=== PATIENT | female | born 1975 | race Caucasian/White ===

== ENCOUNTER 2016-09-03 15:39 | Emergency (ER) | payer OTHER ==
[~2016-09-03] VITALS: Ht 170.2 cm; Wt 109.0 kg
[2016-09-03] MEDS ORDERED: PHENTERMINE37.5 MG PO (15:53)
[2016-09-03] MEDS ORDERED: GABAPENTIN300 MG PO (15:54)
[2016-09-03] MEDS ORDERED: LOSARTAN POT50 MG PO (15:54)
[2016-09-03] MEDS ORDERED: DICYCLOMINE10 MG PO (15:54)
[2016-09-03] MEDS ORDERED: SPIRONOLACT25 MG PO (15:55)
[2016-09-03] MEDS ORDERED: LEVOTHYROXIN200 MC2 PO (15:55)
[2016-09-03] MEDS ORDERED: TOPIRAMATE100 MG PO (15:55)
[2016-09-03] MEDS ORDERED: CLONAZEPAM1 MG PO (15:56)
[2016-09-03] MEDS ORDERED: SOMA350 MG PO (15:56)
[2016-09-03] MEDS ORDERED: BIOTIN5000 MC1 PO (15:57)
[2016-09-03] MEDS ORDERED: VICODIN HP1 TA1 PO (15:57)
[2016-09-03] MEDS ORDERED: ZITHROMAX250 MG PO (16:22)
[2016-09-03] MEDS ORDERED: PREDNISONE10 MG PO (16:22)
[2016-09-03] MEDS ORDERED: VENTOLIN HF1 IN (16:22)
[2016-09-03] MEDS ORDERED: TESSALON PER100 MG PO (16:22)
[2016-09-03 17:11] LABS: INFLUENZA A NONE DETECTED (NONE DETECT); INFLUENZA B NONE DETECTED (NONE DETECT)
[2016-09-03 17:34] VITALS: BP 159/97
== END 2016-09-03 17:42 | disposition home or self-care (01) | DRG 203 ==
LOC: ED 15:39
PROVIDERS: Emergency Medicine
DX: J40 Bronchitis, not specified as acute or chronic (principal); R09.81 Nasal congestion; R05 Cough; R50.9 Fever, unspecified

== ENCOUNTER 2016-12-31 19:24 | Emergency (ER) | payer OTHER ==
[~2016-12-31] VITALS: Ht 170.2 cm; Wt 116.2 kg
[~2016-12-31 19:24] MED LIST: BIOTIN5000 MC1 PO; CLONAZEPAM1 MG PO; DICYCLOMINE10 MG PO; GABAPENTIN300 MG PO; LEVOTHYROXIN200 MC2 PO; LOSARTAN POT50 MG PO; PHENTERMINE37.5 MG PO; PREDNISONE10 MG PO; SOMA350 MG PO; SPIRONOLACT25 MG PO; TESSALON PER100 MG PO; TOPIRAMATE100 MG PO; VENTOLIN HF1 IN; VICODIN HP1 TA1 PO; ZITHROMAX250 MG PO
[2016-12-31] MEDS ORDERED: PHENTERMINE37.5 M1 PO (19:39)
[2016-12-31] MEDS ORDERED: LEVOTHYROXIN125 MCG PO (19:40)
[2016-12-31] MEDS ORDERED: ACYCLOVIR400 MG PO (19:41)
[2016-12-31] MEDS ORDERED: PERCOCET 10/31 COMBO PO (19:41)
[2016-12-31] MEDS ORDERED: ALPRAZOLAM2 M1 PO (19:46)
[2016-12-31] MEDS ORDERED: FENTANYL25 MCG/HR TD (19:49)
[2016-12-31] MEDS ORDERED: XANAX1 MG PO (19:50)
[2016-12-31] MEDS ORDERED: ORPHENADRINE100 MG PO (20:45)
[2016-12-31] MEDS ORDERED: ZIPSOR25 MG PO (20:45)
[2016-12-31 21:15] VITALS: BP 139/78
== END 2016-12-31 21:15 | disposition home or self-care (01) | DRG 93 ==
LOC: ED 19:24
DX: G89.29 Other chronic pain (principal); M51.37 Other intervertebral disc degeneration, lumbosacral region; M54.5 Low back pain

== ENCOUNTER 2017-04-06 23:30 | Emergency (ER) | payer OTHER ==
[~2017-04-06] VITALS: Ht 170.2 cm; Wt 115.0 kg
[~2017-04-06 23:30] MED LIST changes: +ACYCLOVIR400 MG PO; +ALPRAZOLAM2 M1 PO; +FENTANYL25 MCG/HR TD; +LEVOTHYROXIN125 MCG PO; +ORPHENADRINE100 MG PO; +PERCOCET 10/31 COMBO PO; +PHENTERMINE37.5 M1 PO; +XANAX1 MG PO; +ZIPSOR25 MG PO
[2017-04-07 01:58] VITALS: BP 140/85
[2017-04-07] MEDS ORDERED: ULTRAM50 M1 PO (01:59)
== END 2017-04-07 01:55 | disposition home or self-care (01) | DRG 563 ==
LOC: ED 23:30
DX: S96.912A Strain of unspecified muscle and tendon at ankle and foot level, left foot, initial encounter (principal); W22.8XXA Striking against or struck by other objects, initial encounter; Y93.9 Activity, unspecified; Y92.009 Unspecified place in unspecified non-institutional (private) residence as the place of occurrence of the external cause

== ENCOUNTER 2018-05-10 11:42 | Emergency (ER) | payer OTHER, BC ==
[~2018-05-10] VITALS: Ht 170.2 cm; Wt 118.0 kg
[~2018-05-10 11:42] MED LIST changes: +ULTRAM50 M1 PO
[2018-05-10] MEDS ORDERED: SOMA350 MG PO (13:41)
[2018-05-10] MEDS ORDERED: OXYCODONE30 MG PO (13:41)
[2018-05-10] MEDS ORDERED: ALPRAZOLAM2 MG PO (13:42)
[2018-05-10] MEDS ORDERED: TORADOL PO (15:02)
[2018-05-10 15:15] VITALS: BP 129/74
== END 2018-05-10 15:15 | disposition home or self-care (01) | DRG 563 ==
LOC: ED 11:42
DX: S39.012A Strain of muscle, fascia and tendon of lower back, initial encounter (principal); S16.1XXA Strain of muscle, fascia and tendon at neck level, initial encounter; R51 Headache; V59.59XA Passenger in pick-up truck or van injured in collision with other motor vehicles in traffic accident, initial encounter; Y92.411 Interstate highway as the place of occurrence of the external cause; Y93.I9 Activity, other involving external motion

== ENCOUNTER 2020-02-12 13:03 | Emergency (ER) | payer MEDICAID ==
[~2020-02-12] VITALS: Ht 170.2 cm; Wt 146.4 kg
[~2020-02-12 13:03] MED LIST changes: +ALPRAZOLAM2 MG PO; +B-12 10001000 MCG; +BIOTIN MAXI10000 MC1; +CAROSPIR25 MG/5 ML; +MULTI VIT PO; +OXYCODONE30 MG PO; +OXYCONTIN10 MG PO; +TOPAMAX100 M1; +TORADOL PO; +VITAMIN C500 M5 PO; +[UNRECOGNIZED DRUG - OTHER]
[2020-02-12] MEDS ORDERED: IBUPROFEN600 MG PO (15:44)
[2020-02-12 16:16] VITALS: BP 145/83
== END 2020-02-12 16:19 | disposition home or self-care (01) ==
LOC: ED 13:03
DX: S70.11XA Contusion of right thigh, initial encounter (principal); S93.402A Sprain of unspecified ligament of left ankle, initial encounter; S93.401A Sprain of unspecified ligament of right ankle, initial encounter; I10 Essential (primary) hypertension; E66.9 Obesity, unspecified; W13.3XXA Fall through floor, initial encounter; Y92.029 Unspecified place in mobile home as the place of occurrence of the external cause

== ENCOUNTER 2020-05-13 08:42 | Emergency (ER) | payer MEDICAID ==
[~2020-05-13] VITALS: Ht 170.2 cm; Wt 142.3 kg
[~2020-05-13 08:42] MED LIST changes: -CAROSPIR25 MG/5 ML; +IBUPROFEN600 MG PO; +LEVOTHYROXIN150 MCG PO; -TOPAMAX100 M1; +TOPAMAX100 M1 PO
[2020-05-13] MEDS ORDERED: GABAPENTIN600 MG PO (09:43)
[2020-05-13] MEDS ORDERED: ROXICODONE15 M1 PO (09:44)
[2020-05-13 09:46] LABS: HEMATOCRIT 40.9 % (37.0-47.0); HEMOGLOBIN 13.1 g/dl (12.0-16.0); IMMATURE GRANULOCYTES 0.7 % (0.0-5.0); MEAN CORPUSCULAR HGB 28.2 pG CALC (26.0-32.0); NEUT# 7.4 thou/uL (2.00-7.15); RED BLOOD COUNT 4.65 mill/uL (4.20-5.60); RED CELL DISTRI WIDTH 14.9 % (11.5-15.5)
[2020-05-13 10:11] LABS: ACT PARTIAL THROMBO TIME 24.3 SECONDS (20.0-32.5); ALBUMIN 4.1 g/dL (3.2-5.0); ALKALINE PHOSPHATASE 81 u/l (38-126); ANION GAP 8 (6-22 (CALC)); BILIRUBIN, TOTAL 0.4 mg/dL (0.0-1.4); BUN 5 mg/dL (7-17); BUN/CREATININE RATIO 8 (12-20 (CALC)); CARBON DIOXIDE 27 mmol/l (22-30); CHLORIDE 104 mmol/l (95-108); CREATININE 0.7 mg/dL (0.5-1.0); GFR > 60 ML/MIN (>=60 (CALC)); GFR FOR AFR.AMER. > 60 ML/MIN (>=60 (CALC)); POTASSIUM 3.9 mmol/l (3.5-5.1); SGOT/AST 37 u/l (14-36); SODIUM 135 mmol/l (137-146)
[2020-05-13] MEDS ORDERED: PEPCID40 MG PO (12:43)
[2020-05-13] MEDS ORDERED: MAALOX ADV1 CHW PO (12:43)
[2020-05-13 13:11] VITALS: BP 183/111
== END 2020-05-13 13:12 | disposition home or self-care (01) ==
LOC: ED 08:42
PROVIDERS: Student in an Organized Health Care Education/Training Program
DX: K21.9 Gastro-esophageal reflux disease without esophagitis (principal); I10 Essential (primary) hypertension; E66.9 Obesity, unspecified

== ENCOUNTER 2020-09-19 16:34 | Inpatient (IN) | payer MEDICAID ==
[~2020-09-19] VITALS: Ht 170.2 cm; Wt 156.0 kg
[~2020-09-19 16:34] MED LIST changes: +GABAPENTIN600 MG PO; +MAALOX ADV1 CHW PO; +PEPCID40 MG PO; +ROXICODONE15 M1 PO
--- NOTE | 2020-09-19 16:34 | NUR ---
PT BROUGHT IMMEDIATLY TO TREATMENT. PT AROUSABLE TO PAINFUL STIMULUS.
[2020-09-19 18:02] LABS: HEMATOCRIT 39.5 % (37.0-47.0); HEMOGLOBIN 12.1 g/dl (12.0-16.0); IMMATURE GRANULOCYTES 0.3 % (0.0-5.0); MEAN CELL VOLUME 88.6 fL CALC (80.0-100.0); MEAN CORPUSCULAR HGB 27.1 pG CALC (26.0-32.0); MEAN CORPUSCULAR HGB CONC 30.6 g/dL CAL (32.0-36.0); NEUT# 5.5 thou/uL (2.00-7.15); RED BLOOD COUNT 4.46 mill/uL (4.20-5.60); RED CELL DISTRI WIDTH 14.4 % (11.5-15.5)
[2020-09-19 18:19] LABS: ALBUMIN 3.8 g/dL (3.2-5.0); ALKALINE PHOSPHATASE 101 u/l (38-126); BUN 13 mg/dL (7-17); BUN/CREATININE RATIO 19 (12-20 (CALC)); CHLORIDE 92 mmol/l (95-108); CREATININE 0.7 mg/dL (0.5-1.0); GFR > 60 ML/MIN (>=60 (CALC)); GFR FOR AFR.AMER. > 60 ML/MIN (>=60 (CALC)); LIPASE 88 u/l (23-300); POTASSIUM 3.5 mmol/l (3.5-5.1); SGOT/AST 64 u/l (14-36); SODIUM 132 mmol/l (137-146); TOTAL PROTEIN 6.6 g/dL (6.3-8.2)
[2020-09-19 18:20] LABS: ANION GAP 9 (6-22 (CALC)); BILIRUBIN, TOTAL 0.6 mg/dL (0.0-1.4); CARBON DIOXIDE 35 mmol/l (22-30)
[2020-09-19 18:47] LABS: TSH, 3RD GENERATION < 0.02 uIU/mL (0.47 - 4.68)
--- NOTE | 2020-09-19 18:55 | NUR ---
CARE ASSUMED; PT DROWSY BUT ANXIOUS THRASHING AROUND IN BED SPOUSE AT BEDSIDE ANXIOUS WELL ATTEMPTING TO CALM PT. NARCAN ADMINISTERED BY PREVIOUS NURSE DURING BEDSIDE REPORT. COMFORT MEASURES PROVIDED, PT SATS CURRENTLY 97% ON ROOM AIR BODY HABITUS INHIBITS OPTIMAL BREATHING.
--- NOTE | 2020-09-19 19:03 | NUR ---
EKG COMPLETED PT RESTING IN BED, DOZING INTERMITTENLY AROUSES TO TACTILE STIMULI BUT DOZES RIOGHT BACK OFF.
--- NOTE | 2020-09-19 19:20 | NUR ---
PT AGITATED AND INTERMITTENLY THRASHING AROUND IN BED SPOUSE AT BEDSIDE ANXIOUS WELL; ATTEMPTING TO CALM PT. NARCAN ADMINISTERED BY DAY SHIFT NURSE DURING BEDSIDE REPORT. 16F SINCLAIR INSERTED USING STERILE TECHNIQUE WITH IMMEDIATE RETURN OF CLEAR YELLOW URINE WITH SOME SEDIMENT NOTED. COMFORT MEASURES PROVIDED, PT SATS CURRENTLY 93% ON ROOM AIR BODY HABITUS INHIBITS OPTIMAL BREATHING. INSTRUCTS THIS NURSE TO PREPARE FOR INTUBATION
[2020-09-19 19:41] LABS: URINE BILIRUBIN - DIPSTICK NEGATIVE (NEGATIVE); URINE BLOOD DIPSTICK MODERATE (NEGATIVE); URINE COLOR YELLOW; URINE GLUCOSE - DIPSTICK >=1000 mg/dL (NEGATIVE); URINE KETONE NEGATIVE (NEGATIVE); URINE PROTEIN - DIPSTICK NEGATIVE (NEG-TRACE); URINE SPECIFIC GRAVITY 1.015; URINE UROBILINOGEN - DIPSTICK 0.2 E.U./dL (0.2)
[2020-09-19 19:42] LABS: URINE LEUK ESTERASE SMALL (NEGATIVE); URINE NITRITE - DIPSTICK NEGATIVE (Negative)
[2020-09-19 19:49] LABS: URINE SQUAMOUS EPITHELIAL CELL MANY EPI/hpf (0-FEW); URINE WBC 0-2 WBC/hpf (0-5)
--- NOTE | 2020-09-19 20:39 | NUR ---
1949 - T BEDSIDE FOR INTUBATION 1953 - ROCURONIUM GIVEN IVP BY 1953 - ATOMIDATE GIVEN IVP BY 1954 - 8.0 ETT INSERTED BY 23CM AT LIP LINE 1955 - PROPOFOL GTT STRATED PER PROTOCOL AT RATE OF 40 MCG/KG 1956 - 16F OG INSERTED BY 1999 - PLACED ON VENT SEE FLOWSHEET FOR SETTINGS 2014 - UNABLE TO PLACE IJ TLC RELATED TO BODY HABITUS 2015 - PROPOFOL BOLUS GIVEN PER VO 2036 - ANOTHER PROPOFOL BOLUS GIVEN PER VO 2038 - R FEMORAL TLC INSERTED BY
--- NOTE | 2020-09-19 22:00 | NUR ---
VS STABLE PT REMAINA AFEBRILE ,IVF AND MEDICATIONS INFUSING THRU TLC IN R FEMORAL W/O INCIDENT, TOLERATING VENTILATOR W/O INCIDENT SINCLAIR INTACT DRAINING CLEAR YELLOW URINE, ORAL CARE PROVIDED AND OG DRAINING SMALL AMOUNT ORANGE COLORED FLUID. ORAL SECRETIONS DECREASED WITH COMFORTABLE SEDATION. CATH SECURITY DEVICE INTACT ON R UPPER THIGH.
--- NOTE | 2020-09-19 23:15 | NUR ---
PT REMAINS SEDATED AND INTUBATED, ORAL CARE PERFOMRED PRN, VS REMAINS STABLE SEDATION DECREASED TOLERATED FOR PT COMFORT.
[2020-09-20] VITALS (43 sets, daily range): BP systolic 118–183; BP diastolic 59–86
--- NOTE | 2020-09-20 00:30 | NUR ---
PT REMAINS SEDATED AND INTUBATED, ORAL CARE PERFOMRED, AND NG INTACT TO LIS WITH SM AMOUNT ORANGISH LIQUID DRAINAGE WITH FEW PARTICLES NOTED, FOELY DRAINING ADEQUATE CLEAR YELLOW URINE W/ MILD SEDIMENT NOTED, VS REMAINS STABLE
--- NOTE | 2020-09-20 02:06 | NUR ---
PT REMAINS SEDATED AND INTUBATED, VS REMAINS STABLE, PT REMAINS COMFORTBALE AT CURRENT SEDATION SETTINGS, SINCLAIR INTACT AND NG DRNG UNCHANGED.
--- NOTE | 2020-09-20 02:07 | NUR ---
URINE OUTOPUT TO THIS POINT 1600 ML
--- NOTE | 2020-09-20 03:55 | NUR ---
PT ICU ADMIT BEING HELD IN ER, SEE ER DOCUMENTATION FOR PREVIOUS.
--- NOTE | 2020-09-20 04:17 | NUR ---
PT REMAINS INTUBATED AND SEDATED, VS STABLE PT REMAINA AFEBRILE ,IVF AND MEDICATIONS INFUSING THRU TLC IN R FEMORAL W/O INCIDENT, TOLERATING VENTILATOR W/O INCIDENT; SINCLAIR INTACT DRAINING CLEAR YELLOW URINE, CATH SECURITY DEVICE INTACT TO R UPPER THIGH; ORAL CARE PROVIDED AND OG DRAINING SMALL AMOUNT ORANGE COLORED FLUID. RESTRAINTS INTACT TO BILAT WRISTS TO PREVENT SELF EXTUBATION; WITH GOOD CIRCULTAION NOTED TO BUE. COMFORT MEASURES PROVIDED
--- NOTE | 2020-09-20 04:43 | NUR ---
AM LABWORK OBTAINED VIA TLC W/O INCIDENT.
[2020-09-20 05:05] LABS: HEMOGLOBIN 11.5 g/dl (12.0-16.0); IMMATURE GRANULOCYTES 0.4 % (0.0-5.0); MEAN CELL VOLUME 88.3 fL CALC (80.0-100.0); MEAN CORPUSCULAR HGB 27.4 pG CALC (26.0-32.0); MEAN CORPUSCULAR HGB CONC 31.1 g/dL CAL (32.0-36.0); NEUT# 6.08 thou/uL (2.00-7.15); RED BLOOD COUNT 4.19 mill/uL (4.20-5.60); RED CELL DISTRI WIDTH 14.3 % (11.5-15.5)
[2020-09-20 05:20] LABS: ALBUMIN 3.4 g/dL (3.2-5.0); ALKALINE PHOSPHATASE 98 u/l (38-126); ANION GAP 7 (6-22 (CALC)); BILIRUBIN, TOTAL 0.6 mg/dL (0.0-1.4); BUN 12 mg/dL (7-17); BUN/CREATININE RATIO 21 (12-20 (CALC)); CARBON DIOXIDE 33 mmol/l (22-30); CHLORIDE 97 mmol/l (95-108); CREATININE 0.6 mg/dL (0.5-1.0); GFR > 60 ML/MIN (>=60 (CALC)); GFR FOR AFR.AMER. > 60 ML/MIN (>=60 (CALC)); POTASSIUM 3.8 mmol/l (3.5-5.1); SGOT/AST 75 u/l (14-36); SODIUM 133 mmol/l (137-146); TOTAL PROTEIN 6.1 g/dL (6.3-8.2)
--- NOTE | 2020-09-20 05:29 | NUR ---
RADIOLOGY AND RT AT [facility] FOR AM XRAY AND ABG.
--- NOTE | 2020-09-20 07:08 | NUR ---
Patient is screened for PT intervention and no needs are identified at this time
--- NOTE | 2020-09-20 07:47 | NUR ---
PT ARRIVED TO ICU ROOM 6 VIA BED WITH LINE MECHANIC, RT, AND ELECTRIC RANGE ASSEMBLER. ARRIVED ON VENTILATOR AND SEDATED. CONNECTED TO ALL ATTACHMENTS AND SETTLED INTO ROOM. RASS SCORE OF -5; DIPRIVAN INFUSING AT 50 MCG/KG/MIN; VERSED DISCONTINUED IN ED; NORMAL SALINE AT 100ML/HR. ET TUBE SIZE 8.0 AND 24 AT LIP LINE; SETTINGS AT RATE OF 24, TV 480, PEEP 8.0, FIO2 100%. OG TUBE SECURED TO ET TUBE; CONNECTED TO LIS, YELLOW GASTRIC CONTENT. SINUS RYTHM WHEN CONNECTED TO ALTERNATIVE EDUCATION TEACHER. BILATERAL SOFT WRIST RESTRAINTS INTACT; GOOD CSM TO HANDS; RESTRAINTS REMOVED FOR RESPOTIIONING. 16F SINCLAIR CATHETER DRAINING CLEAR, YELLOW URINE. TRIPLE LUMEN CENTRAL CATHETER TO RIGHT FEMORAL; DRESSING CDI; ALL LUMENS FLUSH WELL WITH GOOD BLOOD RETURN. #20 LAC EMS SITE SL; FLUSHES WELL AND APPEARS HEALTHY. PERRLA; LUNG SOUNDS ARE COARSE ANTERIORLY; HR REGULAR; GOOD PERIPHERAL PULSES; HYPOACTIVE BOWEL SOUNDS X 4; BRUISING TO UPPER ABDOMEN THAT APPEARS TO BE FROM INJECTIONS; BLE SWELLING; LEFT LEG LARGER WITH MILD REDNESS AND WARMTH. SAFETY MEASURES IN PLACE. NEEDS ARE ANTICIPATED BY STAFF.
--- NOTE | 2020-09-20 07:57 | NUR ---
PT TRANSPORTED TO ICU STABLE AND IN NO DISTRESS. CARE ASSUMED TO ROSALINDA
--- NOTE | 2020-09-20 07:58 | NUR ---
PT TRANSPORTED TO [facility] SURG STABLE AND IN NO DISTRESS. CARE ASSUMED TO ROSALINDA
--- NOTE | 2020-09-20 08:17 | NUR ---
FIO2 DECREASED TO 90%.
--- NOTE | 2020-09-20 08:50 | NUR ---
DR. BEAUCHAMP AT BEDSIDE. DIPRIVAN TITRATED DOWN TO 40 MCG/KG/MIN.
--- NOTE | 2020-09-20 08:53 | NUR ---
FIO2 DECREASED TO 80%. RR DECREASED TO 20.
--- NOTE | 2020-09-20 09:34 | NUR ---
DIPRIVAN TITRATED DOWN TO 30 MCG/KG/MIN TO PREPARE FOR AWAKENING TRIAL; RASS SCORE CURRENTLY -4.
--- NOTE | 2020-09-20 09:37 | NUR ---
FIO2 DECREASED TO 70%.
--- NOTE | 2020-09-20 09:53 | NUR ---
SCDS APPLIED TO BLE; RT AT BEDSIDE ADJUSTING VENT SETTINGS.
--- NOTE | 2020-09-20 10:10 | NUR ---
FIO2 DECREASED TO 60%.
--- NOTE | 2020-09-20 10:20 | NUR ---
RT AT BEDSIDE FOR AWAKENING TRIAL. DIPRIVAN INFUSING AT 10 MCG/KG/MIN. PT IS AWAKE AND MAKES EYE CONTACT AND FOLLOWS COMMANDS TO SQUEEZE HANDS, MOVE HEAD, ETC. SHAKES HEAD "YES" WHEN ASKED IF SHE IS HAVING PAIN. PT IS TEARFUL AND ANXIOUS; FACE BECOMING FLUSHED AND BLOOD PRESSURE ELEVATED. INDICATED THAT SHE WANTS TO ET TUBE REMOVED; ENCOURAGED TO RELAX AND VERBAL CUES PROVIDED. DR. BEAUCHAMP NOTIFIED OF PATIENT CONDITION.
--- NOTE | 2020-09-20 10:45 | NUR ---
AWAKENING TRIAL COMPLETED AND DR. BEAUCHAMP AGAIN AT BEDSIDE. DIPRIVAN INCREASED TO 40 MCG/KG/MIN TITRATED PER PROTOCOL. VENT SETTINGS NOW AT RATE OF 20, TV 480, PEEP 5.0, FIO2 50%. NEW ORDERS RECEIVED INCLUDING TO CONTINUE ON VENTILATOR FOR TODAY.
--- NOTE | 2020-09-20 11:40 | NUR ---
CALLED WITH UPDATE ON PATIENT CONDITION; PROVIDES HISTORY FOR ADMISSION. ALL QUESTIONS ANSWERED TO SATISFACTION. ACCU CHECK [id number]; COVERED WITH SLIDING SCALE INSULIN.
--- NOTE | 2020-09-20 12:35 | NUR ---
MILK OF MAGNESIA AND ROXICODONE GIVEN AT THIS TIME THROUGH OG TUBE; PT POSITIONED INTO HIGH FOWLERS AND AND OG TUBE CLAMPED.
--- NOTE | 2020-09-20 13:10 | NUR ---
PT OPENS EYES AND MAKES EYE CONTACT TO TACTILE STIMULI; DIPRIVAN INCREASED TO 60 MCG/KG/MIN. AT BEDSIDE.
--- NOTE | 2020-09-20 16:00 | NUR ---
RESTING WITH RASS SCORE OF -3; DIPRIVAN CONTINUES TO INFUSE AT 60 MCG/KG/MIN; PT MORE RELAXED WITH MINIMAL STIMULI. VENT SETTINGS UNCHANGED. REPOSITIONED WITH PILLOWS. MOTHER CALLED FOR UPDATE.
--- NOTE | 2020-09-20 17:45 | NUR ---
PT INCREASINGLY ANXIOUS AND OPENING EYES LOOKING AROUND; FACIAL GRIMACING AT TIMES; HEART RATE INCREASED INTO 110'S AND PT BREATHING AT 34 PER MINUTE (14 RESPIRATIONS OVER VENT.) FACE IS FLUSHED AND MOIST. DIPRIVAN TITRATED TO 75 MCG/KG/MIN WITH MINIMAL EFFECT. VERSED DRIP INITATED AT 1730 WITH 1MG LOADING DOSE; INFUSING AT 1 MG/HR PER PROTOCOL.
--- NOTE | 2020-09-20 18:25 | NUR ---
SMALL SOFT BOWEL MOVEMENT BY PATIENT; CELINA CARE AND SINCLAIR CARE PROVIDED; PT FOUND TO HAVE THICK CREAMY WHITE DISCHARGE FROM VAGINA WITH ODOR; GERARD WINSLOW NOTIFIED. ALSO SMALL AMOUNT OF BLOOD AT SINCLAIR INSERTION SITE; CLEANSED. PT BETTER SEDATED AT THIS TIME AND TOLERATED WELL. RESPIRATIONS NOW AT 24 PER MINUTE, HEART RATE AT 102. WILL CONTINUE TO MONITOR.
--- NOTE | 2020-09-20 20:00 | NUR ---
PATIENT RESTING IN BED WITH EYES CLOSED. SEDATED AND ON VENTILATOR. ORALLY INTUBATED WITH #8 ETT, 24 CM AT LIP LINE. VENT SETTINGS TV 480, FIO2 50%, A/C RATE 20, PEEP 5. OG TUBE IN PLACE TO LIS DRAINING LT GREENISH-GOLD GASTRIC MATERIAL. SINCLAIR DRAINS CLEAAR YELLOW URINE. SCD'S ON BILATERALLY. 2+ PITTING EDEMA OF BLE, NON-PITTING PEDAL EDEMA PRESENT. RIGHT FEMORAL TLC IN PLACE WITH NS INFUSING AT 100 ML/HR, PROPOFOL AT 75 MCG/KG/MIN AND VERSED AT 4 MG/HR. RASS -3. RESEARCH SUPPORT SPECIALIST SHOWS SR-ST.
--- NOTE | 2020-09-20 22:00 | NUR ---
VSS. O2 SAT 95-97% SAME VENT SETTINGS. RASS-3. ST ON MONITOR.
[2020-09-21] VITALS (46 sets, daily range): BP systolic 140–226; BP diastolic 67–113
--- NOTE | 2020-09-21 | NUR ---
REMAINS ON VENT SAME SETTINGS PREVIOUSLY REPORTED. PROPOFOL CONTINUES AT 75 MGC/KG/MIN AND VERSED AT 4 MG/HR. PATINET ADEQUATELY SEDATED, RASS -3. ST ON MONITOR. VSS. SUX ORALLY FOR THICK CLEAR SECRETIONS AND PER ETT FOR SCANT WHITE.
--- NOTE | 2020-09-21 00:52 | NUR ---
ROSY'S DRAW PER JOVANNY RAMOS.
--- NOTE | 2020-09-21 02:00 | NUR ---
REPOSTIONED. ORAL AND ETT SUCTIONED AND ORAL CARE PROVIDED. ADEQUATELY SEDATED. SR-ST ON MONITOR.
--- NOTE | 2020-09-21 04:00 | NUR ---
COMPLETE BED BATH GIVEN AND LINENS CHANGED. TURNED AND REPOSITIONED. SUX ORALLY AND ETT. SAME VENT SETTINGS EARLIER. PROPOFOL CONTINUES AT 75 MCG/KG/MIN AND VERSED AT 4 MG/HR.
--- NOTE | 2020-09-21 05:35 | NUR ---
PORTABLE CHEST XRAY DONE.
[2020-09-21 05:39] LABS: HEMATOCRIT 34.3 % (37.0-47.0); HEMOGLOBIN 10.7 g/dl (12.0-16.0); IMMATURE GRANULOCYTES 0.4 % (0.0-5.0); MEAN CELL VOLUME 88.4 fL CALC (80.0-100.0); MEAN CORPUSCULAR HGB 27.6 pG CALC (26.0-32.0); MEAN CORPUSCULAR HGB CONC 31.2 g/dL CAL (32.0-36.0); NEUT# 9.74 thou/uL (2.00-7.15); RED BLOOD COUNT 3.88 mill/uL (4.20-5.60); RED CELL DISTRI WIDTH 14.7 % (11.5-15.5)
--- NOTE | 2020-09-21 05:55 | NUR ---
BASED ON AM ABG RESULTS, FIO2 DECREASED TO 40% BY RACHEL GRAIN DISTRIBUTOR.
[2020-09-21 05:56] LABS: ALBUMIN 2.9 g/dL (3.2-5.0); ALKALINE PHOSPHATASE 79 u/l (38-126); ANION GAP 9 (6-22 (CALC)); BILIRUBIN, TOTAL 0.5 mg/dL (0.0-1.4); BUN 17 mg/dL (7-17); BUN/CREATININE RATIO 28 (12-20 (CALC)); CARBON DIOXIDE 31 mmol/l (22-30); CHLORIDE 101 mmol/l (95-108); CREATININE 0.6 mg/dL (0.5-1.0); GFR > 60 ML/MIN (>=60 (CALC)); GFR FOR AFR.AMER. > 60 ML/MIN (>=60 (CALC)); MAGNESIUM 2.2 mg/dL (1.6-2.3); POTASSIUM 3.9 mmol/l (3.5-5.1); SGOT/AST 61 u/l (14-36); SODIUM 137 mmol/l (137-146); TOTAL PROTEIN 5.3 g/dL (6.3-8.2)
--- NOTE | 2020-09-21 06:00 | NUR ---
PATIENT REMAINS ORALLY INTUBATED. REMAINS SEDATED ON PROPOFOL AND VERSED. RASS -2 TO -4. SOFT WRIST RESTRAINTS REMAIN IN PLACE. SCD'S ON. RIGHT FEMORAL TLC IN PLACE ALL PORTS HAVE A GOOD BLOOD RETURN, FLUSHED AND PATENT. VSS.
[2020-09-21] MEDS ORDERED: LASIX 20 MG TAB20 MG PO (06:36)
[2020-09-21] MEDS ORDERED: CARDIZEM CD240 MG PO (06:37)
[2020-09-21] MEDS ORDERED: ASPIRIN 81 LOW81 MG (06:38)
--- NOTE | 2020-09-21 07:30 | NUR ---
REPORT RECEIVED FROM JAMES BAUER. PT RESTING IN BED SEMI CANO AND POSITIONED WITH PILLOWS TO OFFLOAD BACK AND HEELS; SEDATED WITH RASS SCORE OF -4; NO SIGNS OF PAIN OR DISTRESS. RESPIRATIONS EVEN AND ASSISTED ON VENT WITH SETTINGS AT RATE OF 20, TV 480, PEEP 5.0, FIO2 40%. DIPRIVAN INFUSING AT 75 MCG/KG/MIN; VERSED 4 MG/HR; NORMAL SALINE 100 ML/HR. TL CENTRAL CATHETER TO R FEM CDI; ALL LUMENS ARE PATENT WITH GOOD BLOOD RETURN. OG TUBE CONNECTED TO LIS WITH YELLOW GASTRIC CONTENT. BILATERAL SOFT WRIST RESTRAINTS INTACT; GOOD CIRCULATION TO HANDS. SINCLAIR CATHETER DRAINING CLEAR YELLOW URINE. SCDS INTACT TO BLE. LUNGS ARE COARSE WITH EXPIRATORY WHEEZING TO LEFT UPPER LOBE ANTERIORLY; 1+ PEDAL EDEMA. ACCU CHECK 248; VSS. SAFETY MEASURES IN PLACE. NEEDS ARE ANTICIPATED BY STAFF.
--- NOTE | 2020-09-21 09:30 | NUR ---
0745-TITRATION OF SEDATIVES BEGAN TO PREPARE FOR EXTUBATION. DIPRIVAN DOWN TO 50 MCG/KG/MIN AND VERSED DOWN TO 3 MG/HR. 08-DIPRIVAN AT 40 MCG/KG/MIN AND VERSED AT 2 MG/HR. 0835-DIPRIVAN AT 20 MCG/KG/MIN AND VERSED AT 1 MG/HR. DR. BEAUCHAMP AND RT AT BEDSIDE FOR AWAKENING TRIAL. 904-DIPRIVAN AT 10 MCG/KG/MIN AND VERSED DISCONTINUED. 929-DIPRIVAN DRIP DISCONTINUED. RT AT BEDSIDE FOR EVAL; VENT SETTINGS NOW ON SPONTANEOUS-PRESSURE SUPPORT OF 22. WILL CONTINUE TO MONITOR.
--- NOTE | 2020-09-21 10:43 | NUR ---
1010-EXTUBATION COMPLETED AND 5L OXYGEN VIA NC APPLIED. OG TUBE D/C'D RESTRAINTS D/C'D. PT VERY DROWSY; ABLE TO STATES HER NAME WITH LOW GARBLED SPEECH. VERBAL CUES AND ENCOURAGEMENT PROVIDED. 1023- AT BEDSIDE FOR REEVALUATION. RT ALSO AT BEDSIDE; PT PLACED ON BIPAP 30% RATE OF 16; SPO2 99%. NEW ORDERS RECEIVED. 1030-BREATHING TREATMENT PROVIDED BY RT.
--- NOTE | 2020-09-21 11:27 | NUR ---
LASIX GIVEN IV. PT CONTINUES TO REST ON BIPAP WITH EYES CLOSED AND FAN ON; VERY DROWSY. LUNGS ARE MORE CLEAR THAN THIS MORNING; PT APPEARS MORE COMFORTABLE AND LESS ANXIOUS.
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
--- NOTE | 2020-09-21 13:23 | NUR ---
XANAX GIVEN TO HELP WITH ANXIETY; PT EXPERIENCING PARANOIA; SUSPICIOUS OF SMALL BOTTLE OF WATER. STATES, "ARE YOU JOKING? WHAT DID YOU DO TO IT. SURE ITS JUST WATER." PT REASSURED THAT NOTHING IS GIVEN TO HER WITHOUT HER PERMISSION; TOOK MEDICATION WITH ENCOURAGEMENT. SON NOW AT BEDSIDE.
--- NOTE | 2020-09-21 13:40 | NUR ---
PT FOUND OFF BIPAP ON 3L NC. SPO2 IS 98%.
--- NOTE | 2020-09-21 14:26 | NUR ---
APRESOLINE GIVEN FOR ELEVATED BLOOD PRESSURE; CURRENTLY / HR 95. SPO2 97% NOW ON 3L VIA NC.
--- NOTE | 2020-09-21 15:09 | NUR ---
PT REMOVED ALL ATTACHMENTS INCLUDING OXYGEN, JAVA JSF DEVELOPER, BLOOD PRESSURE CUFF, SPO2 MONITOR, AND GOWN. ATTEMPTING TO GET OUT OF BED. CONTINUES TO ALSO BE DROWSY AND INTERMITTENTLY FALLS ASLEEP, REQUIRES ASSISTANCE TO DRINK AND TAKE MEDICATIONS. PT RECONNECTED TO ATTACHMENTS AND REMINDED TO STAY IN BED; DOES NOT APPEAR TO COMPREHEND INSTRUCTION DUE TO SEVERITY OF ILLNESS. PT VIEWABLE FROM NURSES DESK AND BED ALARM IS ON, BED IN LOW POSITION.
--- NOTE | 2020-09-21 15:22 | NUR ---
NEW ORDER RECEIVED FOR BILATERAL SOFT WRIST RESTRAINTS FOR PATIENT'S SAFETY. RESTRAINTS APPLIED AT THIS TIME.
--- NOTE | 2020-09-21 17:11 | NUR ---
CELINA/SINCLAIR CARE PROVIDED; WHITE DISCHARGE CONTINUES FROM VAGINA. ASSISTED WITH RESPOSITIONING IN BED. PT CONTINUES TO BE CONFUSED WITH VERY GARBLED SPEECH THAT IS MOSTLY UNINTELLIGABLE. PULLS ON RESTRAINTS; RESTRAINTS REMOVED FOR NURSING CARE AND REAPPLIED; GOOD CSM TO HANDS. PT CONTINUES TO HAVE ELEVATED BLOOD PRESSURES AFTER APRESOLINE.
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
--- NOTE | 2020-09-21 18:29 | NUR ---
OXYCODONE AND XANAX GIVEN PER MD RECOMMENDATION FOR PROBABLE SIGNS OF WITHDRAWL; PT MORE COOPERATIVE WITH PO MEDS; NO PARANOIA AT THIS TIME. DENIES PAIN CURRENTLY.
--- NOTE | 2020-09-21 19:30 | NUR ---
RESTING IN BED ON ROUNDS. DROWSY, OPENS EYES TO NAME. ABLE TO STATE NAME AND THAT SHE IS IN [facility]. SPEECH SLT GARBLED. PATIENT ANXIOUS AND TEARFUL AT TIMES. SUPPORT AND REASSURANCE PROVIDED. RESP NON-LABORED. O2 SAT 98% 3 L O2 PER NC DC'D. BREATH SOUNDS CLEAR. WILL CONTINUE TO MONITOR RESP STATUS CLOSELY. SOFT WRIST RESTRAINTS IN PLACE BILATERALLY PATIENT AT TIMES REMOVES MEDICAL EQUIMENT, CAB DRIVER, PULSE OX. SINCLAIR DRAINS CLEAR YELLOW URINE. RIGHT FEMORAL TLC IN PLACE, NS INFUSING AT 100 ML/HR, DSG CDI, SITE BENIGN. CAB DRIVER SHOWS SR-ST. DISCUSSED PLAN OF CARE. DENIES NEEDS AT THIS TIME. CALL [facility] IN REACH.
--- NOTE | 2020-09-21 21:15 | NUR ---
ASSISTED PATIENT TO USE PORTABLE PHONE, SHE SPOKE WITH HER , SON AND DAUGHTER. PATIENT MUCH CALMER AFTER BEING ABLE TO SPEAK WITH HER FAMILY.
--- NOTE | 2020-09-21 22:18 | NUR ---
APRESOLINE 10 MG IVP GIVEN ORDERED FOR ELEVATED BP. SR ON MONITOR. RESTING WITH EYES CLOSED.
[2020-09-22] VITALS (14 sets, daily range): BP systolic 137–202; BP diastolic 58–116
--- NOTE | 2020-09-22 | NUR ---
WRIST RESTRAINTS RELEASED. PATIENT IS RESTING CALMLY AND QUIETLY. ABLE TO FOLLOW DIRECTIONS. ORIENTED TO PERSON AND PLACE. COOPERATIVE WITH CARE. VSS. RESP NON-LABORED.
--- NOTE | 2020-09-22 02:22 | NUR ---
PATIENT AWAKE ON ROUNDS. C/O GENERALIZED DISCOMFORTS. MEDICATED WITH ROXICODONE 15 MG PO ORDERED FOR PAIN.
--- NOTE | 2020-09-22 04:00 | NUR ---
ASSSITED PATIENT UP TO RECLINER. STABLE STANCE AND ABLE TO TAKE A FEW STEPS FROM BED TO CHAIR. RESTING WITH LEGS ELEVATED. RESP NONLABORED. VSS. BLOOD DRAWN FOR AM LABS. PATIENT STATES SHE IS THRISTY. GIVEN WATER AND JUICE TO DRINK. TOLERATES PO FLUIDS WITHOUT INCIDENT.
--- NOTE | 2020-09-22 05:00 | NUR ---
RETURNED TO BED WITH MINIMAL ASSIST.
[2020-09-22 05:41] LABS: HEMATOCRIT 36.6 % (37.0-47.0); HEMOGLOBIN 11.2 g/dl (12.0-16.0); IMMATURE GRANULOCYTES 0.9 % (0.0-5.0); MEAN CELL VOLUME 88.2 fL CALC (80.0-100.0); MEAN CORPUSCULAR HGB CONC 30.6 g/dL CAL (32.0-36.0); NEUT# 6.93 thou/uL (2.00-7.15); RED BLOOD COUNT 4.15 mill/uL (4.20-5.60); RED CELL DISTRI WIDTH 15.1 % (11.5-15.5)
[2020-09-22 05:51] LABS: ALBUMIN 3.4 g/dL (3.2-5.0); ALKALINE PHOSPHATASE 83 u/l (38-126); ANION GAP 10 (6-22 (CALC)); BILIRUBIN, TOTAL 0.6 mg/dL (0.0-1.4); BUN 10 mg/dL (7-17); BUN/CREATININE RATIO 18 (12-20 (CALC)); CARBON DIOXIDE 25 mmol/l (22-30); CHLORIDE 106 mmol/l (95-108); CREATININE 0.6 mg/dL (0.5-1.0); GFR > 60 ML/MIN (>=60 (CALC)); GFR FOR AFR.AMER. > 60 ML/MIN (>=60 (CALC)); POTASSIUM 3.4 mmol/l (3.5-5.1); SGOT/AST 48 u/l (14-36); SODIUM 138 mmol/l (137-146); TOTAL PROTEIN 6.2 g/dL (6.3-8.2)
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
--- NOTE | 2020-09-22 08:29 | NUR ---
PT RESTING IN BED UPON ARRIVAL, HAS BEEN WAKENED AND IS UP IN THE CHAIR AT THIS TIME EATING BREAKFAST. DR BEAUCHAMP HAS SEEN PT THIS MORNING. LUNGS CLEAR, RA. NO COMPLAINT OF PAIN OR EVIDENCE OF DISTRESS.
--- NOTE | 2020-09-22 14:59 | NUR ---
SINCLAIR CATHETER REMOVED PER PT NO LONGER INTUBATED AND NEED FOR MOVING AROUND. PT REMAINS SLIGHTLY CONFUSED, BUT IS AWAKE AND ALERT. DAUGHTER HAS VISITED THIS MORNING.
--- NOTE | 2020-09-22 16:10 | NUR ---
PT WANTED TO GO BACK TO BED, SEEN AT REST IN THE BED WITH EYES CLOSED, NO EVIDENCE OF DISTRESS, NO COMPLAINTS OF PAIN OR OTHERWISE.
--- NOTE | 2020-09-22 18:21 | NUR ---
PT TO BS WITH ASSIST, ABLE TO VOID SINCE CATHETER REMOVED. FAMILY HAVE CALLED AND BEEN ABLE TO SPEAK WITH HER. NO DISTRESS, NO COMPLAINTS.
--- NOTE | 2020-09-22 19:30 | NUR ---
PATIENT MARINE DRILLER LIGHT TO USE BSC, WAS ASSISTED TO BSC. ALERT AND ORIENTED X4. ON RA, O2 SATS GRAETER THAN 95%. HR 100 BPM WHEN UP TO BSC, ST. ABLE TO WIPE HERSELF, UA IS YELLOW/CLEAR, 550 ML. R-FEMORAL TRIPLE LUMEN INTACT, NS AT 100 ML/HR, DRESSING NEEDS TO BE CHANGED DUE TO LOOSE, PATIENT NOTIFIED. POC DISCUSSED FOR TONIGHT, PATIENT UNDERSTANDS AND AGREES. NURSE ASSESSMENT PERFORMED. DENIES PAIN AT THIS TIME. PATIENT IS OBESE, BP CUFF NEEDS TO BE ADJUSTED CONSTANTLY DUE TO BP NOT READING. AFEBRILE. WILL CONTINUE TO MONITOR.
--- NOTE | 2020-09-22 19:55 | NUR ---
PATIENT GIVEN APRESOLINE IV PRN PER PARAMETERS FOR BP 202/83. WILL CONTINUE TO MONITOR.
--- NOTE | 2020-09-22 20:33 | NUR ---
PATIENT ASSISTED TO WALK TO BATHROOM TO HAVE BM PER REQUEST. PATIENT WAS NOT ABLE TO SELF WIPE, ASSISTED WITH WIPING, HAS SMALL/GREEN/FORMED BM. ABLE TO WALK BACK TO BED, DOES HAVE SLIGHT UNSTEADY GAIT. NOW LAYS IN CANO'S, REQUESTS TV AND LIGHT TO BE TURNED OFF. CALL LIGHT WITHIN REACH.
--- NOTE | 2020-09-22 20:55 | NUR ---
PATIENT ON THE PHONE TALKING TO HER [facility], PATIENT REQUESTS I SPEAK TO HR DAUGHTER, I WAS ABLE TO SPEAK TO DAUGHTER AND WAS CONCERNED ABOUT HER MOTHER COMPLAINING OF HER BLOOD SUGAR BEING HIGH AND SHE WAS HAVING A PANIC ATTACK, I EXPLAINED TO DIUGHTER BOOD SUGAR RESULT AND SHE WILL BE GIVEN INULIN PER SLIDING SCALE WELL XANAX THAT IS SCHEDULED AT THAT TIME. PATIENT ABLE TO SWALLOW HER XANAX WAS EXPLAINED ABOUT INSULIN INJECTION AND LOVENOX INJECTION, BP TO BE TAKEN IN EACH ARM DUE TO NOT READING. WILL CONTINUE TO MONITOR. PATIENT TURNS TO HER RIGHT SIDE. CALL LIGHT WITHIN REACH. ANTIBITOIC INFUSING NOW.
--- NOTE | 2020-09-22 21:56 | NUR ---
PATIENT RN NAVIGATOR LIGHT TO USE BSC TO VOID, PATIENT COMPLAINS OF NECK PAIN RADIATES TO BCK, TEARS UP, RATES PAIN 8 OUT OF 10. PAIN MEDICATION GIVEN.
--- NOTE | 2020-09-22 22:28 | NUR ---
PATIENT'S DAUGHTER ROXY CALLED HERE FOR UPDATE, UPDATE GIVEN.
--- NOTE | 2020-09-22 22:42 | NUR ---
PATIENT UP TO BSC, NOW BACK IN BED, REQUEST WARM BLANKET, PROVIDED.
--- NOTE | 2020-09-22 23:23 | NUR ---
LABETOLOL IV PRN GIVEN [PER PARAMETERS, BP CONTINUES TO BE HIGH 190/80 MMHG, WILL CONTINUE TO MONITOR.
[2020-09-23] VITALS (16 sets, daily range): BP systolic 158–199; BP diastolic 74–110
--- NOTE | 2020-09-23 00:41 | NUR ---
SCGEDULED BREATHING TX GIVEN BY RT RAPHAEL, PATIENT ASSISTED STANDBY TO BSC. PATIENT REPORTS SHE IS ON 2 DIFFERENT BP MEDICATIONS BUT DOES NOT REMEMBER THE NAME OR DOSES. WILL REPORT TO [facility] NURSE. CALL LIGHT WITHIN REACH.
--- NOTE | 2020-09-23 02:33 | NUR ---
PATIENT UP TO [facility], BP CONTINUES TO BE HIGH 173/82 MMHG, APRESOLINE GIVEN PER PARAMETERS. NO COMPLAINTS AT THIS TIME. CALL LIGHT WITHIN REACH.
[2020-09-23 05:22] LABS: HEMATOCRIT 35.9 % (37.0-47.0); HEMOGLOBIN 11.2 g/dl (12.0-16.0); IMMATURE GRANULOCYTES 0.8 % (0.0-5.0); MEAN CELL VOLUME 86.5 fL CALC (80.0-100.0); MEAN CORPUSCULAR HGB CONC 31.2 g/dL CAL (32.0-36.0); NEUT# 5.52 thou/uL (2.00-7.15); RED BLOOD COUNT 4.15 mill/uL (4.20-5.60); RED CELL DISTRI WIDTH 14.9 % (11.5-15.5)
[2020-09-23 05:36] LABS: ANION GAP 11 (6-22 (CALC)); BUN 7 mg/dL (7-17); BUN/CREATININE RATIO 12 (12-20 (CALC)); CARBON DIOXIDE 22 mmol/l (22-30); CHLORIDE 108 mmol/l (95-108); CREATININE 0.6 mg/dL (0.5-1.0); GFR > 60 ML/MIN (>=60 (CALC)); GFR FOR AFR.AMER. > 60 ML/MIN (>=60 (CALC)); MAGNESIUM 1.9 mg/dL (1.6-2.3); POTASSIUM 3.4 mmol/l (3.5-5.1); SODIUM 137 mmol/l (137-146)
--- NOTE | 2020-09-23 05:40 | NUR ---
DRESSING CHANGED TO RIGHT GROIN TRIPLE LUMEN CENTRAL LINE. BLOOD DRAWN FOR AM LAB WORK BEFORE. PATIENT HAS NO COMPLAINTS OR NEEDS AT THIS TIME.
--- NOTE | 2020-09-23 05:50 | NUR ---
MANUAL BP TAKEN DUE TO BP ON MONITOR DOES NOT TAKE BP ON PATIENT DUE TO CUFF DIFFICULT TO PLACE ON PATIENT FROM LARGE ARMS. 162/110 MMHG.
--- NOTE | 2020-09-23 06:12 | NUR ---
PATIENT ABLE TO SWALLOW MEDICATION, NO ACUTE DISTRESS SHOWN. NO COMPLAINTS. CALL LIGHT WITHIN REACH.
--- NOTE | 2020-09-23 06:21 | NUR ---
PT RESTING COMFORTABLY. NAD. VSS. FACILITIES ENGINEER TO MONITOR.
--- NOTE | 2020-09-23 07:45 | NUR ---
REPORT RECEIVED FROM JAMES LEO. PT RESTING IN BED SUPINE WITH BLANKETS OVER HEAD; AWAKENS SPONTANEOUSLY AND REMOVES BLANKET. ALERT AND ORIENTED X 3. DENIES PAIN. RESPIRATIONS EVEN AND UNLABORED ON ROOM AIR; DENIES SOB; LUNGS ARE CLEAR. 3+ PEDAL EDEMA AND TRACE GENERALIZED EDEMA. PLAN OF CARE REVIEWED; PT ENCOURAGED TO VERBALIZE CONCERNS. STATES UNDERSTANDING. SAFETY MEASURES IN PLACE. CALL LIGHT WITHIN REACH.
--- NOTE | 2020-09-23 08:39 | NUR ---
DR. BEAUCHAMP AT BEDSIDE.
--- NOTE | 2020-09-23 09:30 | NUR ---
AM MEDICATIONS ADMINSITERED. PT ASSISTED ONTO BSC FOR LARGE VOID AND BOWEL MOVEMENT. BLOOD PRESSURES ELEVATED; SCHEDULED BLOOD PRESSURE MEDICATIONS ALSO GIVEN. WILL CONTINUE TO MONITOR.
--- NOTE | 2020-09-23 14:08 | NUR ---
CONTINUES TO HAVE ELEVATED BLOOD PRESSURES AFTER MEDICATIONS; PT REPORTS THAT THIS IS NORMAL FOR HER AND HER BLOOD PRESSURES ARE USUALLY ELEVATED. NEW ORDER FOR ONE TIME DOSE OF CLONIDINE; GIVEN AT THIS TIME.
[2020-09-23] MEDS ORDERED: ZITHROMAX250 MG PO (15:41)
[2020-09-23] MEDS ORDERED: APRESOLINE50 MG PO (15:41)
--- NOTE | 2020-09-23 16:00 | NUR ---
CENTRAL LINE TO RIGHT FEMORAL REMOVED; CATH TIP INTACT. PT TOLERATED WELL.
--- NOTE | 2020-09-23 16:28 | NUR ---
Discharge instructions given. Patient verbalizes understanding of same. Discharged in stable condition via Wheelchair to Home with spouse. All belongings sent with pt.
== END 2020-09-23 16:28 | disposition home or self-care (01) | DRG 918 ==
LOC: ED 16:34 → ED-I 18:50 → ED 19:11 → ED-I 19:12 → ICU 21:19 → ED-I 21:19 → ICU 09-20 07:25
PROVIDERS: Family Medicine; ADMIT Internal Medicine; ATTEND Internal Medicine
PROC: 0BH17EZ Insertion of Endotracheal Airway into Trachea, Via Natural or Artificial Opening (ICD-10-PCS; principal; 2020-09-19)
PROC: 5A1945Z Respiratory Ventilation, 24-96 Consecutive Hours (ICD-10-PCS; 2020-09-19)
PROC: 06HY33Z Insertion of Infusion Device into Lower Vein, Percutaneous Approach (ICD-10-PCS; 2020-09-19)
PROC: 0T9B70Z Drainage of Bladder with Drainage Device, Via Natural or Artificial Opening (ICD-10-PCS; 2020-09-20)
DX: T40.2X1A Poisoning by other opioids, accidental (unintentional), initial encounter (principal); Z68.43 Body mass index [BMI] 50.0-59.9, adult; F11.23 Opioid dependence with withdrawal; E66.2 Morbid (severe) obesity with alveolar hypoventilation; J98.8 Other specified respiratory disorders; R00.1 Bradycardia, unspecified; T42.4X1A Poisoning by benzodiazepines, accidental (unintentional), initial encounter; T42.6X1A Poisoning by other antiepileptic and sedative-hypnotic drugs, accidental (unintentional), initial encounter; I10 Essential (primary) hypertension; G89.4 Chronic pain syndrome; F41.9 Anxiety disorder, unspecified; G62.9 Polyneuropathy, unspecified; K59.03 Drug induced constipation; T40.2X5A Adverse effect of other opioids, initial encounter; K21.9 Gastro-esophageal reflux disease without esophagitis; Z79.899 Other long term (current) drug therapy; Z20.822 Contact with and (suspected) exposure to COVID-19
CPT/HCPCS: J1650; S0164

== ENCOUNTER 2021-01-11 01:12 | Emergency (ER) | payer MEDICAID ==
[~2021-01-11 01:12] MED LIST changes: +APRESOLINE50 MG PO; +ASPIRIN 81 LOW81 MG; +CARDIZEM CD240 MG PO; +LASIX 20 MG TAB20 MG PO
[2021-01-11 02:11] LABS: HEMOGLOBIN 12.5 g/dl (12.0-16.0); IMMATURE GRANULOCYTES 0.6 % (0.0-5.0); MEAN CELL VOLUME 86.9 fL CALC (80.0-100.0); MEAN CORPUSCULAR HGB 26.5 pG CALC (26.0-32.0); MEAN CORPUSCULAR HGB CONC 30.5 g/dL CAL (32.0-36.0); NEUT# 4.4 thou/uL (2.00-7.15); RED BLOOD COUNT 4.72 mill/uL (4.20-5.60); RED CELL DISTRI WIDTH 14.3 % (11.5-15.5)
[2021-01-11 02:14] LABS: URINE BILIRUBIN - DIPSTICK NEGATIVE (NEGATIVE); URINE BLOOD DIPSTICK NEGATIVE (NEGATIVE); URINE COLOR YELLOW; URINE GLUCOSE - DIPSTICK 250 mg/dL (NEGATIVE); URINE KETONE NEGATIVE (NEGATIVE); URINE LEUK ESTERASE NEGATIVE (NEGATIVE); URINE PH 5.5 (4.5-8.0); URINE PROTEIN - DIPSTICK NEGATIVE (NEG-TRACE); URINE SPECIFIC GRAVITY >=1.030; URINE UROBILINOGEN - DIPSTICK 0.2 E.U./dL (0.2)
[2021-01-11 02:26] LABS: URINE NITRITE - DIPSTICK NEGATIVE (Negative)
[2021-01-11 02:33] LABS: ALBUMIN 3.3 g/dL (3.2-5.0); ALKALINE PHOSPHATASE 56 u/l (38-126); AMYLASE 59 u/l (30-110); BUN 12 mg/dL (7-17); BUN/CREATININE RATIO 14 (12-20 (CALC)); CHLORIDE 97 mmol/l (95-108); CREATININE 0.8 mg/dL (0.5-1.0); GFR > 60 ML/MIN (>=60 (CALC)); GFR FOR AFR.AMER. > 60 ML/MIN (>=60 (CALC)); LIPASE 382 u/l (23-300); POTASSIUM 3.5 mmol/l (3.5-5.1); SGOT/AST 44 u/l (14-36); SODIUM 132 mmol/l (137-146)
[2021-01-11 02:45] LABS: MYOGLOBIN 30 ng/mL (0 - 62)
[2021-01-11 02:47] LABS: ANION GAP 7 (6-22 (CALC)); BILIRUBIN, TOTAL 0.3 mg/dL (0.0-1.4); CARBON DIOXIDE 32 mmol/l (22-30)
[2021-01-11] MEDS ORDERED: REGLAN10 MG PO (04:23)
[2021-01-11] MEDS ORDERED: PREVACID30 M3 PO (04:23)
[2021-01-11 04:50] VITALS: BP 175/81
== END 2021-01-11 04:55 | disposition home or self-care (01) ==
LOC: ED 01:12
PROVIDERS: Emergency Medicine
DX: K29.70 Gastritis, unspecified, without bleeding (principal); E11.9 Type 2 diabetes mellitus without complications; I10 Essential (primary) hypertension; E66.9 Obesity, unspecified; F17.200 Nicotine dependence, unspecified, uncomplicated; Z20.822 Contact with and (suspected) exposure to COVID-19
CPT/HCPCS: Q9967; S0164